=== PATIENT | female | born 1995 | race Hispanic/Latino ===

== ENCOUNTER 2017-03-09 05:24 | Emergency (ER) | payer OTHER ==
[~2017-03-09] VITALS: Ht 165.1 cm; Wt 63.6 kg
[~2017-03-09 05:24] MED LIST: HYDR-4150 PO; IBUP800T28 PO; NITR100 PO
[2017-03-09 05:33] VITALS: BP 163/70; PULSE 82; RESP 16; O2SAT 100
--- NOTE | 2017-03-09 06:09 | ED.REPORT ---
HPI-NVD Date of Service Mar 09, 2017 ED Provider: Casey Gupta MD Patient is an otherwise healthy 21 year old female who presents to the ED complaining of R hand pain onset about 2 weeks ago. She does not recall a mechanism of injury but her pain was worse today after doing heavy lifting at work yesterday. Associated symptoms include pain with extending her wrist and bending her thumb. She denies numbness, tingling, or any other symptoms. She also reports gradually improving diarrhea onset 2 days ago after she eats. Associated symptoms include nausea. She denies fever, chills, vomiting, decreased fluid intake, or any other symptoms. She has taken 2 Advil every 6 hours for her pain. She has been taking Imodium for her diarrhea but has not had any today. Nursing Notes Stated Complaint: RT ARM PAIN,DIARRHEA Chief Complaint: Female Abdominal Pain Nursing Notes Reviewed: Yes ([employer], [employer] not reconciled) Allergies: Coded Allergies: No Known Allergies (Unverified Allergy, Unknown, 08/03/14) Scheduled Hydrocodone/Acetaminophen ([place] 5-325 Tablet) 1 Each Tablet 1 EACH PO Q3-4H Nitrofurantoin Monohyd/M-Cryst (MacroBid) 100 Mg Capsule 100 MG PO BID Scheduled PRN Hydrocodone-Acetaminophen 5-325 mg (Hydrocodone-Acetaminophen 5-325 mg) 1 Each Tablet 1 TABLET PO Q4H PRN PRN For Pain Ibuprofen (Ibuprofen) 800 Mg Tablet 800 MG PO QID PRN PRN For Pain Loperamide (Loperamide) 2 Mg Tablet 2 MG PO Q4H PRN PRN For Diarrhea or Loose Stool Ondansetron ODT (Ondansetron ODT) 8 Mg Tab.rapdis 8 MG PO Q4H PRN PRN For Nausea General Time Seen by MD: 06:07 Chief Complaint Other (Multiple medical complaints ) Hx Obtained From: Patient, Other family... Arrived By: Walk-in Onset Occurred: More than a week ago... (2 weeks) Symptom Duration: Since onset Past Medical History Past Medical History Denies Past Surgical History Denies Smoking History Current Every Day Smoker Social History Alcohol Use: Denies alcohol use Drug Use: Denies drug use Ambulatory Status Independent Review of Systems Review of Systems Note: -decreased fluid intake, tingling Constitutional: Denies: Chills GI: Reports: Diarrhea, Nausea, Denies: Vomiting Neurologic: Denies: Numbness Complete sys rev & neg: except as marked. Musculoskeletal: Reports: Extremity pain Physical Exam Initial Vital Signs Vital Signs (First) Date Time Temp Pulse Resp B/P Pulse Ox O2 Delivery O2 Flow Rate FiO2 03/09/17 05:33 36.7 82 16 163/70 100 Room Air Initial VS: Reviewed, Vital signs normal Head / Eyes: Atraumatic, Normocephalic Neck: Full range of motion Respiratory: No respiratory distress Cardiovascular: Intact distal pulses Skin: Warm, Dry Neurologic: Alert, Oriented, Nonfocal Psychiatric: Mood/affect normal, Behavior normal, Normal thought content General/Constitutional: Awake, Alert, No acute distress, Well appearing, Well developed, Well hydrated, Not toxic appearing Abdomen: Atraumatic, Soft, Non-tender Wrist / Hand: Neurologic intact, Vascular intact Muscle and tendon tenderness along R thumb pain with extension and flexion of R wrist no signs cellulitis or infection, good pulses No warmth, redness, or swelling. Interpretation & Diagnostics Lab Results Interpretation Test 03/09/17 05:40 Hold Urine Received (Received) X-Ray Interpretation Xray Interpretation: No acute process X-Ray Ordered: Wrist right Interpretation / Wet Read by: Interpret - ED physician Re-Eval/Medical Decision Med Decision/Clinical Course This is a 21-year-old female who presents with a chief complaint of right thumb pain with extension and flexion over the past few weeks. Chart indicates abdominal pain, but the patient actually reports she is not having any abdominal pain, she has had diarrhea over the past 3 days but that it is improving. She tells me her chief complaint is that she has had this pain in the right hand, particularly over the extensor surface of the right thumb, extending into the forearm that appeared present for the past 2 weeks, and it was worsened. This has not been a definite acute injury, this been no redness, fevers, open wounds. There is no numbness. She is right-hand dominant. On exam she is clinically well-appearing and in no visible discomfort. She does have some tenderness findings suggestive of de Quervain's, although she does not have a clinton crepitus along the tendon sheath. There is no signs of overt trauma. Plain radiographs the wrist are negative. Her abdomen is entirely soft and nontender. The patient had plain radiographs were negative. She is placed in a splint. I recommended ibuprofen, some when necessary loperamide for the resolving diarrhea , and although she mentioned some nausea intermittently she has not having out, so I went ahead and wrote a prescription for some when necessary ondansetron as well. Routine and return precautions reviewed. A work note was provided. Patient is discharged in good condition Source of Hx: Old records Re-Evaluation/Progress : Time of Eval: 07:28 Re-Evaluation/Progress Note: Discussed plan for discharge. Patient understands and agrees with plan. All questions addressed at this time. Differential Diagnosis: Negative: Appendicitis, Boerhaave syndrome, C. diff colitis, Crohn's disease, Dehydration, Drug overdose, Drug-med reaction, Inflam bowel disease, Kerry-Morgan syndrome, Meniere's disease, Migraine headache, Pancreatitis, Peptic ulcer disease, Ulcerative colitis Counseled Regarding: Diagnosis, Lab results, Need for follow-up, When/why to return to ED Discharge & Departure Impression: Primary Impression: De Quervain's tenosynovitis, right Additional Impression: Diarrhea Diarrhea type: unspecified type Qualified Code: R19.7 - Diarrhea, unspecified Disposition: Home Discharge Condition All VS Reviewed: Yes Condition: Stable Additional Instructions: 1. Your symptoms are suggestive of a type of tendonitis of the thumb (it is frequent enough that it is called "De Quervain's tendonitis"). No fractures or other injury was appreciated on Xray. 2. Although painful, it does usually improve with time - although it can take several weeks to resolve. 3. Use the splint for comfort as needed. 4. I do recommend continuing the ibuprofen 400-600mg three times a day for pain. 5. If needed for severe pain take hydrocodone/APAP 5/325 1-2 tabs up to every 6 hours. NOTE: This medication contains a narcotic and causes drowsiness. No driving for at least 4 hours after taking. Use sparingly. 6. For the diarrhea - take immodium (loperamide) 1 tab after each loose stool up to 6 tabs in 24 hours. Continue to drink plenty of fluids. Slowly advance diet as tolerated. 7. If needed for nausea take ondansetron 8mg (let dissolve under the tongue) up to every 4 hours as needed. 8. Follow up with [facility] as needed. Referrals: [facility] (PCP) Scribe Attestation Portions of this note were transcribed by Norman Stephenson. I, Dr. Gupta personally performed the history, physical exam and medical decision-making; I reviewed and confirmed the accuracy of the information in the transcribed note. Signed by: Norman Stephenson 03/09/2017, 0739 copies to: [facility] Matthew F MD Mar 09, 2017 06:09 NORMAN STEPHENSON Mar 09, 2017 06:24
[2017-03-09] MEDS ORDERED: LOPE2TAB32 PO (07:23)
[2017-03-09] MEDS ORDERED: HYDR-4003 PO (07:23)
[2017-03-09] MEDS ORDERED: ONDA8TAB10 PO (07:23)
--- NOTE | 2017-03-09 07:37 | DRSVH ---
PROCEDURE: X-RAY RIGHT WRIST COMPLETE, MINIMUM THREE VIEWS ([id number]) INDICATIONS: pain TECHNIQUE: 4 views of the wrist were acquired. COMPARISON: None. FINDINGS: Bones: No fractures or dislocations. No suspicious bony lesions. Scaphoid view: Normal. Soft tissues: No suspicious soft tissue calcifications. IMPRESSION: No acute fractures. Dictated by: Clinton Calixto M.D. on 03/09/2017 at 7:25 Approved by: Clinton Calixto M.D. on 03/09/2017 at 7:30
[2017-03-09 07:41] VITALS: BP 101/58; PULSE 79; RESP 16; O2SAT 99
== END 2017-03-09 07:42 | disposition home or self-care (01) ==
LOC: SED 05:24
DX: M65.4 Radial styloid tenosynovitis [de Quervain] (principal); R19.7 Diarrhea, unspecified; R11.10 Vomiting, unspecified; F17.200 Nicotine dependence, unspecified, uncomplicated